=== PATIENT | female | born 1980 | race Two or more races ===

== ENCOUNTER 2017-11-25 10:54 | Emergency (ER) | payer OTHER ==
[~2017-11-25] VITALS: Ht 167.6 cm; Wt 86.2 kg
[~2017-11-25 10:54] MED LIST: INDERAL LA160 MG PO; PROTONIX40 MG PO; TOPAMAX200 MG PO
[2017-11-25] MEDS ORDERED: BOTOX100 UNIT (11:01)
[2017-11-25] MEDS ORDERED: NORFLEX100MG PO (16:06)
[2017-11-25] MEDS ORDERED: MEDROLPACK PO (16:06)
== END 2017-11-25 16:21 | disposition home or self-care (01) ==
LOC: ER 10:54
DX: R51 Headache (principal)

== ENCOUNTER 2017-12-05 11:15 | Emergency (ER) | payer OTHER ==
[~2017-12-05] VITALS: Ht 165.1 cm; Wt 88.5 kg
[~2017-12-05 11:15] MED LIST changes: +BOTOX100 UNIT; +MEDROLPACK PO; +NORFLEX100MG PO
[2017-12-05] MEDS ORDERED: TOPAMAX200 MG (11:46)
[2017-12-05] MEDS ORDERED: KETO10TA2 PO (16:39)
== END 2017-12-05 18:00 | disposition home or self-care (01) ==
LOC: ER 11:15
DX: G43.909 Migraine, unspecified, not intractable, without status migrainosus (principal)

== ENCOUNTER 2019-10-14 09:14 | Outpatient (CLI) | payer OTHER ==
[~2019-10-14 09:14] MED LIST changes: +KETO10TA2 PO; +TOPAMAX200 MG
== END 2019-10-14 10:30 | disposition home or self-care (01) ==
LOC: SONOGRAMA 09:14
PROVIDERS: ATTEND Pathology Anatomic Pathology
DX: E04.1 Nontoxic single thyroid nodule (principal)

== ENCOUNTER 2019-12-13 11:22 | Outpatient (CLI) | payer OTHER | END 2019-12-13 11:25 | disposition home or self-care (01) | LOC: SONOGRAMA 11:22 | PROVIDERS: ATTEND Pathology Anatomic Pathology & Clinical Pathology | DX: E04.1 Nontoxic single thyroid nodule (principal) ==

== ENCOUNTER 2022-01-18 09:39 | Emergency (ER) | payer OTHER ==
[~2022-01-18] VITALS: Ht 165.1 cm; Wt 90.7 kg
[2022-01-18] MEDS ORDERED: SYNTHROID75 MCG PO (09:49)
[2022-01-18] MEDS ORDERED: PROMETH-CODEIN 65 ML PO (15:58)
[2022-01-18] MEDS ORDERED: BENZONATATE200 M1 PO (15:58)
[2022-01-18] MEDS ORDERED: IPRAT-ALBUT 0.5-3 ML IH (15:58)
[2022-01-18] MEDS ORDERED: MUCINEX DM ER1 EAC1 PO (15:58)
[2022-01-18] MEDS ORDERED: BUDESONIDE0.5 MG/2 M IH (15:58)
[2022-01-18] MEDS ORDERED: MEDROLPACK PO (15:58)
== END 2022-01-18 17:24 ==
LOC: ER 09:39
DX: J45.901 Unspecified asthma with (acute) exacerbation (principal); J06.9 Acute upper respiratory infection, unspecified